=== PATIENT | male | born 1950 | race Two or more races ===

== ENCOUNTER 2019-07-28 15:37 | Emergency (ER) | payer MEDICAID, MEDICARE ==
[~2019-07-28] VITALS: Ht 162.6 cm; Wt 100.0 kg
[2019-07-28] MEDS ORDERED: [UNRECOGNIZED DRUG - REMARK] PO (15:56)
[2019-07-28 21:30] VITALS: BP 149/97
== END 2019-07-28 22:00 | disposition home or self-care (01) ==
LOC: EMS 15:41
DX: N50.89 Other specified disorders of the male genital organs (principal); M79.89 Other specified soft tissue disorders; F17.210 Nicotine dependence, cigarettes, uncomplicated; F19.90 Other psychoactive substance use, unspecified, uncomplicated
CPT/HCPCS: 76870